=== PATIENT | male | born 1960 | race Caucasian/White ===

== ENCOUNTER 2017-08-19 23:13 | Emergency (ER) | payer SELFPAY ==
[~2017-08-19] VITALS: Ht 175.3 cm; Wt 77.6 kg
[2017-08-19 23:28] VITALS: Ht 175.3 cm; Wt 77.6 kg
[2017-08-20 00:40] LABS: BASOPHIL % 0.3 % (0-2); RED CELL DISTRIBUTION WIDTH 13.9 % (11.5-14.5)
[2017-08-20 00:41] LABS: PLATELET COUNT 439 x10^3mcL (130-400)
[2017-08-20 00:49] LABS: CALCIUM 8.8 mg/dL (8.5-10.1); CHLORIDE SERUM 103 mmol/L (98-107); CREATININE SERUM 0.7 mg/dL (0.7-1.3); GLUCOSE SERUM 121 mg/dL (74-106); POTASSIUM SERUM 4.1 mmol/L (3.5-5.1); SODIUM SERUM 135 mmol/L (136-145)
[2017-08-20 00:53] LABS: ALKALINE PHOSPHATASE 138 U/L (46-116); ALT/SGPT 25 U/L (16-63); AST/SGOT 23 U/L (15-37); BILIRUBIN TOTAL 0.33 mg/dL (0.20-1.00); LIPASE 168 IU/L (73-393); TOTAL PROTEIN, SERUM 7.7 g/dL (6.4-8.2)
[2017-08-20 01:01] LABS: ALBUMIN 2.6 g/dL (3.4-5.0)
[2017-08-20 03:41] VITALS: BP 129/79
== END 2017-08-20 03:41 | disposition home or self-care (01) ==
LOC: ED 23:13 → EDBD 23:13 → ED 08-20 03:41
PROVIDERS: Emergency Medicine
DX: S80.11XA Contusion of right lower leg, initial encounter (principal); M54.5 Low back pain; G82.20 Paraplegia, unspecified; X58.XXXA Exposure to other specified factors, initial encounter; Y93.9 Activity, unspecified; Y92.89 Other specified places as the place of occurrence of the external cause; Y99.8 Other external cause status
CPT/HCPCS: J1885; J7030; Q0092

== ENCOUNTER 2017-09-16 14:09 | Inpatient (IN) | payer SELFPAY ==
[~2017-09-16] VITALS: Ht 177.8 cm; Wt 81.6 kg
[2017-09-16 14:55] VITALS: Ht 177.8 cm; Wt 81.6 kg
[2017-09-16 15:05] LABS: BASOPHIL % 1.1 % (0-2)
[2017-09-16 15:30] LABS: CALCIUM 9.4 mg/dL (8.5-10.1); CARBON DIOXIDE 21.7 mmol/L (21-32); CHLORIDE SERUM 106 mmol/L (98-107); CREATININE SERUM 1.2 mg/dL (0.7-1.3); GFR1 > 60 mL/min; GLUCOSE SERUM 133 mg/dL (74-106); POTASSIUM SERUM 5.1 mmol/L (3.5-5.1); RED CELL DISTRIBUTION WIDTH 15.8 % (11.5-14.5); SODIUM SERUM 145 mmol/L (136-145)
[2017-09-16 15:31] LABS: PLATELET COUNT 524 x10^3mcL (130-400)
[2017-09-16 15:38] LABS: ALBUMIN 4.2 g/dL (3.4-5.0); ALKALINE PHOSPHATASE 217 U/L (46-116); ALT/SGPT 27 U/L (16-63); AST/SGOT 35 U/L (15-37); BILIRUBIN TOTAL 0.3 mg/dL (0.20-1.00); CHOLESTEROL 185 mg/dL (<200); HDL CHOLESTEROL 48 mg/dL (40-60); LIPASE 298 IU/L (73-393); T4(THYROXINE) 8.4 ug/dL (4.7-13.3)
[2017-09-16 15:45] LABS: TOTAL PROTEIN, SERUM 9.8 g/dL (6.4-8.2)
[2017-09-16 15:54] LABS: AMYLASE 55 U/L (25-115); MAGNESIUM 2.7 mg/dL (1.8-2.4)
[2017-09-16 17:16] LABS: UA SPECIFIC GRAVITY 1.025 (1.005-1.035); microscopic required? YES; urine erythrocyte NEGATIVE (NEGATIVE)
[2017-09-16 17:24] LABS: AMPHETAMINE QUAL UR POSITIVE (See below)
[2017-09-16] MEDS ORDERED: ALPRAZOLAM0.25 MG (17:52)
[2017-09-16] MEDS ORDERED: BUS5 PO (17:53)
[2017-09-16] MEDS ORDERED: SEROQUEL25 MG (17:54)
[2017-09-16 18:37] LABS: T3 TOTAL 1.6 ng/mL
[2017-09-16 18:44] LABS: FREE T4 1.12 ng/dL (0.76-1.46); FREE THYROXINE INDEX 2.5 ug/dL (1.4-4.5); T4(THYROXINE) 7.7 ug/dL (4.7-13.3)
[2017-09-16 18:58] LABS: CHOLESTEROL/HDL RATIO 3.9; PHOSPHOROUS 4.9 mg/dL (2.5-4.9)
[2017-09-16 19:38] VITALS: BP 111/61
[2017-09-17 04:54] VITALS: BP 124/74
[2017-09-17 08:17] VITALS: BP 119/72
[2017-09-17 13:01] VITALS: BP 111/60
[2017-09-17 17:24] LABS: BASOPHIL % 0.9 % (0-2)
[2017-09-17 17:38] LABS: CALCIUM 8.2 mg/dL (8.5-10.1); CARBON DIOXIDE 25.3 mmol/L (21-32); CHLORIDE SERUM 106 mmol/L (98-107); CREATININE SERUM 0.7 mg/dL (0.7-1.3); GFR1 > 60 mL/min; GLUCOSE SERUM 96 mg/dL (74-106); MAGNESIUM 1.9 mg/dL (1.8-2.4); POTASSIUM SERUM 4.1 mmol/L (3.5-5.1); SODIUM SERUM 139 mmol/L (136-145)
[2017-09-17 17:41] LABS: PLATELET COUNT 403 x10^3mcL (130-400); RED CELL DISTRIBUTION WIDTH 15.4 % (11.5-14.5)
[2017-09-17 21:27] VITALS: BP 125/71
[2017-09-18 05:47] VITALS: BP 106/64
[2017-09-18 06:45] LABS: BASOPHIL % 0.5 % (0-2); PLATELET COUNT 366 x10^3mcL (130-400)
[2017-09-18 06:54] LABS: CALCIUM 7.6 mg/dL (8.5-10.1); CARBON DIOXIDE 26.9 mmol/L (21-32); CHLORIDE SERUM 106 mmol/L (98-107); CREATININE SERUM 0.6 mg/dL (0.7-1.3); GFR1 > 60 mL/min; GLUCOSE SERUM 90 mg/dL (74-106); MAGNESIUM 1.9 mg/dL (1.8-2.4); PHOSPHOROUS 2.9 mg/dL (2.5-4.9); SODIUM SERUM 139 mmol/L (136-145)
[2017-09-18 09:32] VITALS: BP 109/65
[2017-09-18 13:14] VITALS: BP 133/70
[2017-09-18 16:30] VITALS: BP 133/70
[2017-09-18 16:50] VITALS: BP 120/61
[2017-09-18 20:50] VITALS: BP 112/63
[2017-09-19 05:35] VITALS: BP 136/52
[2017-09-19 08:35] VITALS: BP 117/57
[2017-09-19 11:43] VITALS: BP 117/57
[2017-09-19 12:14] VITALS: BP 122/81
[2017-09-19 16:44] VITALS: BP 122/81
[2017-09-19] MEDS ORDERED: BACDS PO (17:04)
[2017-09-19 18:05] VITALS: BP 106/61
== END 2017-09-19 18:10 | disposition home or self-care (01) | DRG 91 ==
LOC: ED 14:09 → DU 17:31
PROVIDERS: Emergency Medicine; Family Medicine
DX: G92 Toxic encephalopathy (principal); R53.2 Functional quadriplegia; N39.0 Urinary tract infection, site not specified; E72.20 Disorder of urea cycle metabolism, unspecified; B19.20 Unspecified viral hepatitis C without hepatic coma; F20.9 Schizophrenia, unspecified; Z59.0 Homelessness; F19.10 Other psychoactive substance abuse, uncomplicated; R73.03 Prediabetes; D47.3 Essential (hemorrhagic) thrombocythemia; S63.612A Unspecified sprain of right middle finger, initial encounter; X58.XXXA Exposure to other specified factors, initial encounter; Y93.89 Activity, other specified; Y92.89 Other specified places as the place of occurrence of the external cause; Y99.8 Other external cause status
CPT/HCPCS: 36600; 82962; 83880; 84439; G0480; J0696; J2060; J2543; J7030; Q0092